=== PATIENT | male | born 1955 | race Caucasian/White ===

== ENCOUNTER 2018-09-17 17:49 | Emergency (ER) | payer MEDICAID ==
[~2018-09-17] VITALS: Ht 162.6 cm; Wt 70.5 kg
[~2018-09-17 17:49] MED LIST: INSLAN SQ; METF-960 PO
[2018-09-17 18:15] LABS: GLUCOSE,POINT OF CARE 374 MG/DL (70-110)
[2018-09-17 20:14] LABS: GLUCOSE,POINT OF CARE 325 MG/DL (70-110)
[2018-09-17] MEDS ORDERED: SODIUM CHLORIDE 0.9% 1,000 ML IV ONE (21:15)
[2018-09-17 22:58] LABS: GLUCOSE,POINT OF CARE 343 MG/DL (70-110)
[2018-09-18 00:42] VITALS: BP 127/76
[2018-09-20] MEDS ORDERED: DEXT1DRO OU (00:57)
[2018-09-20] MEDS ORDERED: FOLI1TAB15 PO (00:57)
[2018-09-20] MEDS ORDERED: MULT-1203 PO (00:57)
[2018-09-20] MEDS ORDERED: ASPI81TA87 PO (00:57)
== END 2018-09-18 01:52 | disposition home or self-care (01) ==
LOC: EMS 17:49
DX: E11.65 Type 2 diabetes mellitus with hyperglycemia (principal); Z79.84 Long term (current) use of oral hypoglycemic drugs; Z79.4 Long term (current) use of insulin
CPT/HCPCS: 82962; 96360; 99283; J7030

== ENCOUNTER 2018-09-18 12:25 | Emergency (ER) | payer MEDICAID ==
[~2018-09-18] VITALS: Ht 160 cm; Wt 68.2 kg
[2018-09-18 12:54] LABS: GLUCOSE,POINT OF CARE 554 MG/DL (70-110)
[2018-09-18] MEDS ORDERED: SODIUM CHLORIDE 0.9% 1,000 ML IV ONE (15:30)
[2018-09-18 16:00] LABS: BASOPHILS % (AUTO) 0.3 % (0.0-2.0); EOSINOPHILS % (AUTO) 1.8 % (1.0-6.0); HEMATOCRIT 35.6 % (41-53); HEMOGLOBIN 11.8 g/dL (13.5-17.5); LYMPHOCYTES # (AUTO) 1.2 K/uL (1.0-4.8); MEAN CORPUSCULAR HGB CONC 33.1 G/dL (31.0-37.0); MEAN CORPUSCULAR VOLUME 91 fL (80-100); MONOCYTES # (AUTO) 0.6 K/uL (0.1-1.0); MONOCYTES % (AUTO) 13.1 % (2.0-9.0); NEUTROPHILS # (AUTO) 2.5 K/uL (1.8-7.7); NEUTROPHILS % (AUTO) 56.8 % (40.0-70.0); PLATELET COUNT (AUTO) 110 K/uL (150-450); RED BLOOD CELL COUNT(AUTO) 3.93 MIL/uL (4.50-5.90); RED CELL DISTRIBUTION WIDTH 14.7 % (11.5-14.5)
[2018-09-18 16:19] LABS: ALANINE AMINOTRANSFERASE 50 U/L (12-78); ALBUMIN 3.2 g/dL (3.4-5.0); ALKALINE PHOSPHATASE 172 U/L (46-116); ANION GAP 8 mmol/L (8-16); ASPARTATE AMINOTRANSFERASE 63 U/L (15-37); BILIRUBIN,TOTAL 0.9 mg/dL (0.1-1.0); CALCIUM, TOTAL 10.1 mg/dL (8.8-10.5); CARBON DIOXIDE 24 mmol/L (22-29); CHLORIDE 96 mmol/L (98-107); CREATININE 1.34 mg/dL (0.60-1.30); GLOMERULAR FILTR. RATE CALC 54 mL/min (>60); POTASSIUM 5.1 mmol/L (3.5-5.1); SODIUM SERUM 128 mmol/L (136-145); TOTAL PROTEIN, SERUM 8.1 g/dL (6.4-8.2); UREA NITROGEN, BLOOD 14 mg/dL (7-18)
[2018-09-18 16:27] LABS: GLUCOSE,RANDOM 422 mg/dL (70-110)
[2018-09-18 16:28] LABS: AMPHET/METH SCREEN,URINE NEGATIVE (NEGATIVE); BARBITURATE SCREEN, URINE NEGATIVE (NEGATIVE); BENZODIAZEPINES SCREEN,URINE NEGATIVE (NEGATIVE); CANNABINOID SCREEN,URINE NEGATIVE (NEGATIVE); COCAINE SCREEN,URINE NEGATIVE (NEGATIVE); METHADONE SCREEN, URINE NEGATIVE (NEGATIVE); OPIATE SCREEN,URINE NEGATIVE (NEGATIVE); PHENCYCLIDINE SCREEN,URINE NEGATIVE (NEGATIVE)
[2018-09-18] MEDS ORDERED: INSULIN REGULAR, HUMAN 100 UNITS/ML IVP ONE ×2 (16:30)
[2018-09-18 16:39] LABS: GLUCOSE,POINT OF CARE 376 MG/DL (70-110)
[2018-09-18 17:35] LABS: GLUCOSE,POINT OF CARE 333 MG/DL (70-110)
[2018-09-18 18:34] LABS: GLUCOSE,POINT OF CARE 290 MG/DL (70-110)
[2018-09-18 19:45] VITALS: BP 122/76
[2018-09-20] MEDS ORDERED: DEXT1DRO OU (00:57)
[2018-09-20] MEDS ORDERED: FOLI1TAB15 PO (00:57)
[2018-09-20] MEDS ORDERED: ASPI81TA87 PO (00:57)
[2018-09-20] MEDS ORDERED: MULT-1203 PO (00:57)
== END 2018-09-18 20:06 | disposition home or self-care (01) ==
LOC: EMS 12:26
DX: E11.65 Type 2 diabetes mellitus with hyperglycemia (principal); Z79.4 Long term (current) use of insulin
CPT/HCPCS: 36415; 80053; 80307; 82962; 85025; 96361; 96374; 99283; G0480; J1815; J7030